=== PATIENT | male | born 1970 | race Caucasian/White ===

== ENCOUNTER 2019-03-12 23:49 | Emergency (ER) | payer MEDICARE, MEDICAID ==
[~2019-03-12] VITALS: Ht 177.8 cm; Wt 87.0 kg
[~2019-03-12 23:49] MED LIST: AMOX-580 PO; FERR325T32 PO; HYDR-4353 PO; NICO-687 TD; NO HOME MEDS; PANT40TA4 PO
[2019-03-13 01:06] LABS: HEMOGLOBIN 9.5 g/dl (14.0-17.9); MONOCYTES # (AUTO) 0.4 X10'3 (0-0.9)
[2019-03-13 01:07] LABS: ALANINE AMINOTRANSFERASE 78 U/L (12-78); ALBUMIN 2.5 G/DL (3.4-5.0); ALKALINE PHOSPHATASE 178 IU/L (46-116); ANION GAP 9 (8-16); ASPARTATE AMINO TRANSFERASE 127 U/L (10-37); BILIRUBIN,TOTAL 3.8 MG/DL (0.1-1.0); BLOOD UREA NITROGEN 7 MG/DL (7-18); BUN/CREATININE RATIO 9.2 (5.4-32.0); CALCIUM 7.7 MG/DL (8.5-10.1); CHLORIDE 107 MMOL/L (99-107); CREATININE 0.76 MG/DL (0.60-1.10); GLUCOSE 156 MG/DL (70-104); LIPASE 174 U/L (73-393); POTASSIUM 3.6 MMOL/L (3.5-5.1); SODIUM 137 MMOL/L (135-145); eGFR > 90 ML/MIN
[2019-03-13 01:08] LABS: EOSINOPHILS % (AUTO) 1.4 % (0-6); HEMATOCRIT 28.7 % (42.0-52.0); LYMPHOCYTES # (AUTO) 0.4 X10'3 (1.1-4.8); LYMPHOCYTES % (AUTO) 17.1 % (21-51); MEAN CORPUSCULAR HEMOGLOBIN 26.2 PG (27.0-31.0); MEAN CORPUSCULAR HGB CONC 32.9 g/dL (33.0-36.5); MEAN CORPUSCULAR VOLUME 79.6 FL (78-98); MONOCYTES % (AUTO) 17.3 % (2-12); NEUTROPHILS # (AUTO) 1.5 X10'3 (1.8-7.7); NEUTROPHILS % (AUTO) 63.2 % (42-75); PLATELET COUNT 107 X10'3 (140-440); RED BLOOD COUNT 3.61 X10'6 (4.70-6.10); RED CELL DISTRIBUTION WIDTH 30.2 % (11.5-14.5); WHITE BLOOD COUNT 2.4 X10'3 (4.5-11.0)
[2019-03-13 01:23] LABS: ALBUMIN/GLOBULIN RATIO 0.7 (1.1-1.5); TOTAL PROTEIN 6.2 G/DL (6.4-8.2)
--- NOTE | 2019-03-13 01:32 | NUR ---
Patient resting comfortably in bed playing on his Nintendo. No requests at this time.
[2019-03-13 02:00] LABS: TOTAL CELLS COUNTED 100
[2019-03-13 02:01] LABS: ANISOCYTOSIS 3+; ELLIPTOCYTES 1+; HYPOCHROMASIA 1+; PLATELET ESTIMATE DECREASED; SCHISTOCYTES FEW
[2019-03-13 02:02] LABS: TEAR DROP CELLS FEW
[2019-03-13 02:03] LABS: ACANTHOCYTES FEW; MICROCYTOSIS 1+; SPHEROCYTES FEW
[2019-03-13 02:04] LABS: POIKILOCYTOSIS 1+; POLYCHROMASIA FEW
[2019-03-13 02:45] VITALS: BP 132/84
== END 2019-03-13 02:48 | disposition home or self-care (01) ==
LOC: ER 23:50
DX: R04.2 Hemoptysis (principal); R11.0 Nausea; F10.99 Alcohol use, unspecified with unspecified alcohol-induced disorder; Z59.0 Homelessness; Z79.899 Other long term (current) drug therapy; Y90.9 Presence of alcohol in blood, level not specified
CPT/HCPCS: 36415; 80053; 83690; 85025; 99283

== ENCOUNTER → 2020-03-20 | Emergency (ER) | payer MEDICARE, MEDICAID ==
[~2020-03-20] VITALS: Ht 180.3 cm; Wt 100.0 kg
[~2020-03-20] MED LIST changes: -NO HOME MEDS; -PANT40TA4 PO; +PANT40TA54 PO
[2020-03-20 22:38] VITALS: BP 135/84
--- NOTE | 2020-03-20 23:26 | NUR ---
CALLED [facility] AND LEFT MESSAGE FOR THEM TO CALL ME BACK. GAVE HIM FOOD AND DRINK AND HOT COCOA AND A TSHIRT.
--- NOTE | 2020-03-20 23:39 | NUR ---
CINDY MYERS AT THE [facility], HE SAID TO SENT THE PATIENT OVER. I CALLED [facility] AND THEY WILL BE HERE IN 45 MINUTES. I WENT OUT TO THE LOBBY TO INFORM THE PATIENT AND HE IS SO HAPPY AND THANKFUL.
== END | disposition home or self-care (01) ==
LOC: ER 22:37
DX: R42 Dizziness and giddiness (principal); J34.89 Other specified disorders of nose and nasal sinuses; R06.02 Shortness of breath; R05 Cough; Z20.822 Contact with and (suspected) exposure to COVID-19; Z72.89 Other problems related to lifestyle; Z59.0 Homelessness; Z79.2 Long term (current) use of antibiotics; Z79.899 Other long term (current) drug therapy
CPT/HCPCS: 36415; 87635; 99283

== ENCOUNTER 2020-10-05 07:23 | Emergency (ER) | payer SELFPAY ==
[~2020-10-05] VITALS: Ht 180.3 cm; Wt 84.5 kg
[2020-10-05] MEDS ORDERED: PENI250T2 PO (08:01)
[2020-10-05] MEDS ORDERED: NAPR-56 PO (08:01)
[2020-10-05 08:11] VITALS: BP 147/85
== END 2020-10-05 08:16 | disposition home or self-care (01) ==
LOC: ER 07:23
DX: K04.7 Periapical abscess without sinus (principal); Z79.899 Other long term (current) drug therapy
CPT/HCPCS: 99283

== ENCOUNTER 2024-10-20 18:59 | Emergency (ER) | payer MEDICARE, MEDICAID ==
--- NOTE | 2024-10-20 19:59 | RADIOLOGY REPORT ---
EXAMINATIONS: 3 views of the left foot CLINICAL HISTORY: FOOT PAIN COMPARISON: None Findings and impression: Comminuted and mildly displaced fractures of the calcaneus which are best appreciated on the oblique projection.
[2024-10-20] MEDS ORDERED: ketorolac trometh 15mg/ml vial 15 MG/ML ML IM ONE (21:10)
[2024-10-20] MEDS: ketorolac trometh 30MG/ML vial 30 MG/ML VIAL IM ONE (21:19)
--- NOTE | 2024-10-20 21:21 | Physician Documentation ---
History of Present Illness ~ Chief Complaint: Foot pain Stated Complaint: FOOT PAIN Time Seen by MD: 19:36 Primary Medical Doctor: none HPI Patient is a 53-year-old male that presents to the emergency department for lower left extremity swelling and pain x1 day. Patient reports that he jumped off of something earlier today landed and felt a significant pain in his left heel. Since that time the patient reports that his pain has increased in his foot has become progressively more swollen throughout the day. She denies any other symptoms at this time. Tetanus witin 5 years: No Medication Reconciliation Allergies: Coded Allergies: No Known Allergies (Unverified , 10/20/24) Scheduled Amox Tr/Potassium Clavulanate 875/125 MG (Augmentin 875/125 MG), 1 TAB PO BID Ferrous Sulfate (Ferrous Sulfate), 1 TAB PO Q12H Nicotine 21 MG Patch* (Habitrol 21 MG Patch*), 1 PATCH TD DAILY Pantoprazole Sodium (Pantoprazole Sodium), 40 MG PO BID Scheduled PRN Hydrocodone Bit/Acetaminophen ([place] 10-325 Tablet), 1 TAB PO Q4H PRN for severe pain Past Medical History Past Medical History: GI Bleed Past Surgical History: no surgical history Alcohol Use: Occasionally Drug Use: none Lives In: Homeless Review of Systems ROS As stated above in the HPI, otherwise all systems are reviewed and negative. Physical Exam Vital Signs: Temperature: 97.5, Source: Temporal, Heart Rate: 99, Respiratory Rate: 15, BP: 149/91, Pulse Oximetry: 97 Physical Exam VITALS: Reviewed and as above. GENERAL: Alert, no apparent distress. HEENT: Normocephalic, atraumatic, PERRL, EOMI, dry mucosa, no erythema RESPIRATORY: Lungs clear, normal breath sounds, no respiratory distress. CHEST: No accessory muscle use, no retractions CV: Regular rate, rhythm, no edema, no murmur, No: JVD GI: Soft, non-tender, bowels sounds present, no rebound, guarding, or rigidity BACK: No CVA tenderness, or swelling MUSCULOSKELETAL No deformities, significant edema to the lower left extremity, pain with light touch, palpation, and range of motion, localized pain to the lower left heel and dorsal aspect of the left foot. SKIN: Warm and dry, no rash NEURO: Oriented x4, No motor or sensory deficit PSYCH: Normal mood and affect, no agitation Progress Results/Orders Results/Orders Orders - VELIA RUSSELL [employer] General Nursing Order (10/20/24 21:08) Ketorolac Trometh 30mg/Ml Vial (Toradol (10/20/24 21:15) Completed Orders - VELIA RUSSELL [employer] Acetaminophen 325mg Tablet (Tylenol Tabl (10/20/24 21:10) Vital Signs 10/20/24 19:18 Temp 97.5 Pulse 99 Resp 15 B/P (MAP) 149/91 Pulse Ox 97 Medical Decision Making Findings The Pt was found to have a closed calcaneus fracture on XR. The Pt is otherwise well appearing, hemodynamically stable, and shows no evidence of neurovascular injury or compartment syndrome. Patient was placed in a Mireya boot and will follow up with ortho_ PMD for ortho referal. Patient given Toradol and Tylenol here in the emergency department. We will follow up with primary care provider and orthopedics. Patient will return to the emergency room with any worsening of his current symptoms or any additional concerning symptoms that we discussed here today i.e. increased swelling, increased pain, numbness to the extremity, redness, fever chills nausea vomiting or any other concerning symptoms. Patient placed in a Devens boot. Rest ice elevation as needed. Tylenol and ibuprofen as needed for discomfort. General Diff Dx:Considerations: Include: Abrasion, Contusion, Fracture, Hematoma, Laceration, Malunion, Neurovascular injury, Open fracture, Sprain, Ulcer, Other Knee Diff Dx:Considerations: Include: Abrasion, Arthritis, Contusion, DJD, Fracture-femur, Fracture-fibula, Fracture-patella, Fracture-tibia, Gout, Hematoma, Laceration, Meniscus injury, Neurovascular injury, Open fracture, Rheumatoid arthritis, Septic, Sprain, Sprain-MCL, Sprain-LCL, Sprain-ACL, Sprain-PCL, Other Ankle Diff Dx:Considerations: Include: Abrasion, Arthritis, Contusion, DJD, Fracture-metatarsal, Fracture-fibula, Fracture-tarsal, Fracture-tibia, Gout, Hematoma, Laceration, Malunion, Neurovascular injury, Nonunion, Open fracture, Osteomyelitis, Rheumatoid arthritis, Sprain, Septic, Ulcer, Other Foot Diff Dx:Considerations: Include: Abrasion, Arthritis, Cellulitis, Contusion, Dislocation, DJD, Fracture-metatarsal, Fracture-phalynx, Fracture- tarsal, Gout, Hematoma, Ingrown toenail, Laceration, Malunion, Neurovascular inj ury, Open fracture, Paronychia, Puncture, Rheumatoid, Sprain, Septic, Subungual hematoma, Ulcer, Other Toe Diff Dx:Considerations: Include: Abrasion, Cellulitis, Contusion, Dislocation, Felon, Fracture, Hematoma, Laceration, Neurovascular injury, Open fracture, Paronychia, Subungual hematoma, Other Departure Disposition: 01 HOME / SELF CARE / HOMELESS Impression: Primary Impression: Fracture of foot Additional Impressions: Calcaneus fracture Edema Pain Condition: Stable Discharge Instructions: Fracture, Foot Additional Instructions: The Pt was found to have a closed calcaneus fracture on XR. The Pt is otherwise well appearing, hemodynamically stable, and shows no evidence of neurovascular injury or compartment syndrome. Patient was placed in a Devens boot and will follow up with ortho_ PMD for ortho referal. Patient given Toradol and Tylenol here in the emergency department. We will follow up with primary care provider and orthopedics. Patient will return to the emergency room with any worsening of his current symptoms or any additional concerning symptoms that we discussed here today i.e. increased swelling, increased pain, numbness to the extremity, redness, fever chills nausea vomiting or any other concerning symptoms. Patient placed in a Devens boot. Rest ice elevation as needed. Tylenol and ibuprofen as needed for discomfort. [facility]: [phone] Referrals: NO PRIMARY CARE PROVIDER (PCP) Education Educated: Patient Educated regarding: diagnosis, treatment, need for follow up Signature Scribe Signature: A Attestation: Scribed for Velia Russell by SERGIO Geronimo . 10/20/24 21:23 VELIA RUSSELL Oct 20, 2024 21:20
[2024-10-20 21:37] VITALS: BP 145/89; PULSE 92; RESP 18; TEMP 98.6; O2SAT 99
== END 2024-10-20 21:38 | disposition home or self-care (01) ==
LOC: ER 19:00
DX: S92.002A Unspecified fracture of left calcaneus, initial encounter for closed fracture (principal); Y30.XXXA Falling, jumping or pushed from a high place, undetermined intent, initial encounter; Y93.89 Activity, other specified; Y92.89 Other specified places as the place of occurrence of the external cause; Y99.8 Other external cause status
CPT/HCPCS: 73630; 96372; 99283; J1885; L4360